=== PATIENT | male | born 1990 | race Caucasian/White ===

== ENCOUNTER 2018-09-06 07:50 | Day surgery (SDC) | payer OTHER ==
[~2018-09-06 07:50] MED LIST: VERSED SYRUP 2 MG/ML PO SCH
[2018-09-06] MEDS ORDERED: SUBLIMAZE 250 MCG/5 ML IJ ONE (07:51)
[2018-09-06] MEDS ORDERED: DIPRIVAN 200 MG/20 ML IV ONE (07:51)
[2018-09-06] MEDS ORDERED: Zemuron 100 MG/10 ML IJ ONE (07:51)
[2018-09-06] MEDS ORDERED: BRIDION 200MG/2ML IV ONE (07:51)
[2018-09-06] MEDS ORDERED: Lactated Ringers 1,000 ML IV ONE ×2 (07:57→09:00)
[2018-09-06] MEDS ORDERED: MEFOXIN 2 GM PREMIX** 2 GM/50 ML ML IV ONE (07:57)
[2018-09-06] MEDS ORDERED: Lactated Ringers 1,000 ML IV SCH (08:00)
[2018-09-06] MEDS ORDERED: MEFOXIN 2 GM PREMIX** 2 GM/50 ML ML IV SCH (08:00)
--- NOTE | 2018-09-06 08:24 | HP ---
DATE OF SURGERY: 09/06/2018 HISTORY OF PRESENT ILLNESS: The patient is a 28 year-old with some slight changes in liver function test. No nausea or vomiting. He has some autism. He has had ultrasound showing cholelithiasis. I feel he will benefit from cholecystectomy. PAST MEDICAL HISTORY: Hypercholesterolemia, autism, hyperlipidemia, some reflux. PAST SURGICAL HISTORY: No prior abdominal incision. MEDICATIONS: Cholesterol medications, omeprazole, Pravastatin, Trazodone. ALLERGIES: NKDA. FAMILY HISTORY: Negative in regards to this problem. SOCIAL HISTORY: No smoking or alcohol abuse. REVIEW OF SYSTEMS: Twelve systems reviewed per admission assessment. No chest pain or palpitations other systems negative or noncontributory as above and per preadmission questionnaire. PHYSICAL EXAMINATION: GENERAL: No acute distress. HEENT: Sclerae nonicteric. NECK: No JVD. CHEST: Equal excursion, nonlabored breathing. CVS: Regular rate and rhythm. ABDOMEN: Soft. No peritoneal signs. EXTREMITIES: No significant edema. NEURO: Alert, oriented, moving extremities symmetrically. No gross motor deficits noted. IMPRESSION: Cholelithiasis, probable chronic cholecystitis. I feel the patient will benefit from cholecystectomy. Risks and benefits explained in detail including but not limited to bleeding or infection, risk of trocar injury or hernia, small risk of bowel, bladder or blood vessel injury, small risk of bile leak, bile duct injury, retained stone or sludge possibly requiring further procedure either open or ERCP. General risk of anesthesia, deep venous thrombosis, pulmonary embolism, perioperative risk of aches, pains, bloating, constipation and/or loose stools possibly even chronic in nature. Possibility of slight change in liver function test from medications or other issues, sludge or cholesterol coming down from the gallbladder. He Understands and agrees to the planned procedure, will proceed with laparoscopic cholecystectomy with possible open as an outpatient.
[2018-09-06] MEDS ORDERED: Sensorcaine 0.25% 10 ML ONE (09:00)
[2018-09-06] MEDS ORDERED: SUBLIMAZE 100 MCG/2 ML ONE (11:59)
[2018-09-06 13:17] VITALS: PULSE 95; O2SAT 96
[2018-09-06 13:28] VITALS: BP 148/86
--- NOTE | 2018-09-06 14:23 | OP ---
SURGERY DATE/TIME: 09/06/2018 1051 PREOPERATIVE DIAGNOSIS: Symptomatic cholelithiasis, chronic cholecystitis. POSTOPERATIVE DIAGNOSIS: Symptomatic cholelithiasis, severe chronic cholecystitis. PROCEDURE: Laparoscopic cholecystectomy. SURGEON: Dr. Ronaldo Mcelroy. POLISHER DIAL: Ashley Olmstead, Medical Student III. ANESTHESIA: General. ESTIMATED BLOOD LOSS: Minimal. INDICATIONS: As noted above. Risks and benefits explained in detail but not limited to and consent obtained. DESCRIPTION OF PROCEDURE AND FINDINGS: The patient was taken to the OR. General anesthesia induced. Abdomen prepped and draped in the usual sterile fashion. After official time out and no disagreement with planned procedure, a transverse incision made at the supraumbilical area. Fascia grasped and pulled upward. Veress needle inserted and tested with saline. Pneumoperitoneum accomplished insufflating opening pressure of 0-15. An 11 mm bladeless port and camera inserted without difficulty followed by two - 5 mm right upper quadrant ports and 5 mm epigastric port. The gallbladder grasped retracted over the edge of the liver laterally away from Calot's triangle. Dissection carried posterior, lateral to anterior fashion. He had extensive chronic inflammatory reaction although slowly and carefully the cystic duct infundibular junction skeletonized until the critical view obtained both anteriorly and posteriorly. Once this was accomplished cystic duct and cystic artery clipped x3 and divided in usual fashion. Some additional oozing side branches off the cystic artery were isolated directly on the gallbladder wall clipped and divided in the usual fashion. The gallbladder slowly and carefully dissected free from its dense attachments to the liver bed, staying directly on the gallbladder wall. Just prior to releasing from final attachments to anterior edge of the liver the liver bed re-inspected. Clips noted in placed in cystic duct and cystic artery stumps. There were no signs of any active bleeding or bile leakage. One of the grasper tore a small pin hole in front of the gallbladder. It spilled a small amount of bile. There was no evidence of any stone spillage. The gallbladder was released from final attachments to anterior edge of the liver, placed in Pleatman sac, pulled up into the supraumbilical 10/11 port site just slightly spread with a clamp allowing the Pleatman sac and gallbladder to be pulled free and passed off out the port wound. Copious amount of irrigation had been accomplished lateral to the liver and subhepatic space irrigating until clear. The fascia defect at 10/11 site was closed with puncture closure device under direct vision with the camera and #1 Vicryl. Pneumoperitoneum decompressed. The wound was irrigated out. Skin incision closed with 4-0 Vicryl. Steri-Strips and sterile dressing applied. 0.25% Marcaine local injected along the skin incision fascial defect. The patient tolerated the procedure well. There were no immediate complications. Findings discussed with the family out in the waiting area. He was transferred to recovery in stable condition.
== END 2018-09-06 13:10 | disposition home or self-care (01) ==
LOC: SDC 07:50
PROVIDERS: ATTEND Surgery
DX: K80.10 Calculus of gallbladder with chronic cholecystitis without obstruction (principal); E78.00 Pure hypercholesterolemia, unspecified; F84.0 Autistic disorder; K21.9 Gastro-esophageal reflux disease without esophagitis; Z79.899 Other long term (current) drug therapy
CPT/HCPCS: 88304; J0694; J2704; J3010; A9270-GY